=== PATIENT | female | born 1960 | race Caucasian/White ===

== ENCOUNTER 2016-08-08 08:10 | Outpatient (CLI) | payer OTHER, MEDICAID | END 2016-08-08 08:11 | disposition home or self-care (01) | DX: E78.5 Hyperlipidemia, unspecified (principal); R53.83 Other fatigue; Z12.11 Encounter for screening for malignant neoplasm of colon ==

== ENCOUNTER 2016-08-09 08:00 | Outpatient (CLI) | payer OTHER, MEDICAID | END 2016-08-09 08:01 | disposition home or self-care (01) | DX: R53.83 Other fatigue (principal); Z12.11 Encounter for screening for malignant neoplasm of colon; E78.5 Hyperlipidemia, unspecified ==

== ENCOUNTER 2016-09-21 13:28 | Outpatient (CLI) | payer OTHER, MEDICAID ==
[2016-09-21 18:38] LABS: THYROID STIMULATING HORMONE 1.63 uIU/mL (0.34-5.60)
== END 2016-09-21 13:29 | disposition home or self-care (01) ==
LOC: LAB.F 13:28
PROVIDERS: ATTEND Nurse Practitioner Family
DX: E03.9 Hypothyroidism, unspecified (principal)
CPT/HCPCS: 36415; 84439; 84443

== ENCOUNTER 2016-11-09 08:22 | Outpatient (CLI) | payer OTHER ==
[2016-11-09 10:35] LABS: EOSINOPHILS # (AUTO) 0.2 10^3/uL (0.0-0.7); EOSINOPHILS % (AUTO) 3.8 %; LYMPHOCYTES # (AUTO) 1.9 10^3/uL (1.5-3.5); MEAN PLATELET VOLUME 10.2 fL (7.9-10.8); MONOCYTES # (AUTO) 0.5 10^3/uL (0.0-1.0)
[2016-11-09 10:37] LABS: BASOPHILS % (AUTO) 0.4 %; HCT - HEMATOCRIT 36.3 % (37.0-47.0); HGB - HEMOGLOBIN 12.6 g/dL (12.0-16.0); LYMPHOCYTES % (AUTO) 30.4 %; MEAN CORPUSCULAR HEMOGLOBIN 31.3 pg (27.0-31.0); MEAN CORPUSCULAR HGB CONC 34.7 g/dL (32.0-36.0); MEAN CORPUSCULAR VOLUME 90.3 fL (81.0-99.0); MONOCYTES % (AUTO) 7.1 %; NEUTROPHILS # (AUTO) 3.7 10^3/uL (1.5-6.6); NEUTROPHILS % (AUTO) 58.3 %; RED BLOOD COUNT 4.02 10^6/uL (4.20-5.40); RED CELL DISTRIBUTION WIDTH 12.9 % (12.0-15.0); UNCORRECTED WHITE BLOOD COUNT 6.4 x10^3/uL; WHITE BLOOD COUNT 6.4 x10^3/uL (4.8-10.8)
[2016-11-09 10:56] LABS: ALBUMIN/GLOBULIN RATIO 1.7 (1.0-2.2); BILIRUBIN,TOTAL 0.2 mg/dL (0.2-1.0); CREATININE 0.6 mg/dL (0.4-1.0); TOTAL PROTEIN 6.8 g/dL (6.7-8.2)
[2016-11-09 10:59] LABS: CALCIUM 8.9 mg/dL (8.5-10.3); POTASSIUM 3.7 mmol/L (3.5-5.0)
[2016-11-09 11:04] LABS: FERRITIN 48.7 ng/mL (11.0-306.8)
[2016-11-09 11:16] LABS: THYROID STIMULATING HORMONE 3.39 uIU/mL (0.34-5.60)
== END 2016-11-09 08:23 | disposition home or self-care (01) ==
LOC: LAB.F 08:22
PROVIDERS: ATTEND Nurse Practitioner Family
DX: R53.83 Other fatigue (principal); N95.1 Menopausal and female climacteric states; E03.9 Hypothyroidism, unspecified; E55.9 Vitamin D deficiency, unspecified
CPT/HCPCS: 36415; 80053; 82306; 82728; 84436; 84439; 84443; 84481; 85025; 86376; 86800

== ENCOUNTER 2017-02-13 12:48 | Outpatient (CLI) | payer OTHER ==
--- NOTE | 2017-02-13 15:55 | XRAY Report ---
THREE VIEW LUMBAR SPINE: 02/13/2017 CLINICAL INDICATION: Back pain. FINDINGS: AP, lateral, and coned down views of the lumbar spine demonstrate degenerative disk and fa cet disease. Disk space narrowing is worst at L2-3. There is no evidence of acute fracture or subluxa tion. IMPRESSION: DEGENERATIVE CHANGES, WORST AT L2-3. JOB #: [id number] EXT JOB #:[id number]
--- NOTE | 2017-02-13 15:58 | XRAY Report ---
SACRUM AND COCCYX: 02/13/2017 CLINICAL INDICATION: Low back pain. FINDINGS: AP, oblique, and lateral views of the sacrum and coccyx demonstrate mild degenerative jacobs ges of the sacroiliac joints. There is no evidence of acute fracture. The sacral ala are preserved. IMPRESSION: NORMAL SACRUM AND COCCYX. JOB #: [id number] EXT JOB #:[id number]
--- NOTE | 2017-02-13 15:59 | XRAY Report ---
TWO VIEW THORACIC SPINE: 02/13/2017 CLINICAL INDICATION: Back pain. FINDINGS: Frontal and lateral views of the thoracic spine demonstrate mild degenerative disk disease . There is no evidence of compression fracture. No paraspinal hematoma is seen. IMPRESSION: MILD DEGENERATIVE DISK DISEASE. JOB #: [id number] EXT JOB #:[id number]
== END 2017-02-13 12:49 | disposition home or self-care (01) ==
LOC: DI 12:48
PROVIDERS: ATTEND Nurse Practitioner Family
DX: M51.34 Other intervertebral disc degeneration, thoracic region (principal); M51.36 Other intervertebral disc degeneration, lumbar region; M47.896 Other spondylosis, lumbar region
CPT/HCPCS: 72070; 72100; 72220

== ENCOUNTER 2017-11-29 08:10 | Outpatient (CLI) | payer OTHER ==
[2017-11-29 10:43] LABS: BASOPHILS % (AUTO) 0.6 %; EOSINOPHILS # (AUTO) 0.2 10^3/uL (0.0-0.7); EOSINOPHILS % (AUTO) 3.6 %; HGB - HEMOGLOBIN 13.2 g/dL (12.0-16.0); LYMPHOCYTES # (AUTO) 2.3 10^3/uL (1.5-3.5); LYMPHOCYTES % (AUTO) 38.3 %; MEAN CORPUSCULAR HEMOGLOBIN 30.4 pg (27.0-31.0); MEAN CORPUSCULAR HGB CONC 33.9 g/dL (32.0-36.0); MEAN CORPUSCULAR VOLUME 89.7 fL (81.0-99.0); MEAN PLATELET VOLUME 9.8 fL (7.9-10.8); MONOCYTES # (AUTO) 0.5 10^3/uL (0.0-1.0); MONOCYTES % (AUTO) 8.6 %; NEUTROPHILS # (AUTO) 2.9 10^3/uL (1.5-6.6); NEUTROPHILS % (AUTO) 48.9 %; PLT - PLATELET COUNT 214 10^3/uL (130-450); RED BLOOD COUNT 4.35 10^6/uL (4.20-5.40); RED CELL DISTRIBUTION WIDTH 12.9 % (12.0-15.0)
[2017-11-29 10:54] LABS: ALBUMIN 4.2 g/dL (3.2-5.5); ALBUMIN/GLOBULIN RATIO 1.6 (1.0-2.2); ALKALINE PHOSPHATASE 52 IU/L (42-121); ALT ALANINE AMINOTRANSFERASE 24 IU/L (10-60); AST ASPARTATE AMINOTRANSFERASE 27 IU/L (10-42); BILIRUBIN,TOTAL 0.6 mg/dL (0.2-1.0); BUN - BLOOD UREA NITROGEN 15 mg/dL (6-20); CALCIUM 9.3 mg/dL (8.5-10.3); CARBON DIOXIDE - CO2 27 mmol/L (21-32); CHLORIDE 104 mmol/L (101-111); CHOL/HDL RATIO 2.7 (<4.4); CHOLESTEROL 240 mg/dL; CREATININE 0.9 mg/dL (0.4-1.0); GFR - MDRD 64 (>89); GLUCOSE 101 mg/dL (70-100); HDL CHOLESTEROL 90 mg/dL; LDL CHOLESTEROL,CALCULATED 120 mg/dL; LDL/HDL RATIO 1.3 (<4.4); SODIUM 138 mmol/L (135-145); TOTAL PROTEIN 6.8 g/dL (6.7-8.2); VLDL CHOLESTEROL 30 mg/dL
[2017-11-29 11:03] LABS: T4 (THYROXINE) 6.12 ug/dL (6.09-12.23)
[2017-11-29 11:06] LABS: THYROID STIMULATING HORMONE 3.05 uIU/mL (0.34-5.60)
[2017-11-29 11:08] LABS: FREE T4 (FREE THYROXINE) 0.86 ng/dL (0.58-1.64)
[2017-11-29 11:12] LABS: FERRITIN 52.1 ng/mL (11.0-306.8)
[2017-12-02 12:26] LABS: THYROID PEROXIDASE ANTIBODIES 90 IU/mL (<9)
== END 2017-11-29 08:11 | disposition home or self-care (01) ==
LOC: LAB.F 08:10
PROVIDERS: ATTEND Nurse Practitioner Family
DX: Z00.00 Encounter for general adult medical examination without abnormal findings (principal); E55.9 Vitamin D deficiency, unspecified; E78.5 Hyperlipidemia, unspecified; E03.9 Hypothyroidism, unspecified
CPT/HCPCS: 36415; 80053; 80061; 82306; 82728; 83721; 84436; 84439; 84443; 84481; 85025; 86376; 86800

== ENCOUNTER 2017-12-22 17:47 | Emergency (ER) | payer OTHER ==
[2017-12-22] MEDS ORDERED: KETOROLAC 60 MG/2 ML VIAL IVP STA (18:10)
--- NOTE | 2017-12-22 18:12 | ED Physician Documentation ---
PD HPI ABD PAIN - Stated complaint Stated Complaint: ABD PX/FEVER - Chief complaint Chief Complaint: Abd Pain - History obtained from History obtained from: Patient, Family - History of Present Illness Pain level max: 5 Pain level now: 4 Quality: Aching, Pain Location: RLQ, Suprapubic, LLQ Radiation: Lower back Improved by: Laying still Worsened by: Eating, Moving, Palpation Associated symptoms: Fever, Diarrhea. No: Nausea, Vomiting, Constipation, Hematochezia, Dysuria, Hematuria, Dizzy Similar symptoms before: Has not had sx before Recently seen: Not recently seen - Additional information Additional information: Patient is a 57 year old female who presents to the emergency department with c/o moderate abdominal pain. States the pain is located in her lower abdomen and states it feels like "a burning wound with salt being poured on it". States she is afraid to take any pain medications orally in fear that it might upset her abdomen and make her pain worse. States that eating makes her symptoms worse. Is scheduled for a colonoscopy in a few weeks. Review of Systems Ten Systems: 10 systems reviewed and negative Constitutional: denies: Fever, Chills Nose: denies: Rhinorrhea / runny nose, Congestion Throat: denies: Sore throat Cardiac: denies: Chest pain / pressure Respiratory: denies: Cough GI: denies: Nausea, Vomiting, Diarrhea Skin: denies: Rash Musculoskeletal: denies: Neck pain, Back pain Neurologic: denies: Headache PD PAST MEDICAL HISTORY - Past Medical History Cardiovascular: None Respiratory: None Endocrine/Autoimmune: None GI: None : None HEENT: None Psych: None Musculoskeletal: Osteoarthritis Derm: None - Past Surgical History Past Surgical History: Yes General: 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: 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 and currettage - Present Medications Home Medications: Ambulatory Orders Medication Instructions Recorded Confirmed Amox/Clav 875/125 [Augmentin] 1 each PO Q12H #20 tablet 12/22/17 Levothyroxine [Synthroid] 12/22/17 - Allergies Allergies/Adverse Reactions: Allergies Allergy/AdvReac Type Severity Reaction Status Date / Time No Known Drug Allergies Allergy Verified 12/22/17 17:55 - Social History Does the pt smoke?: Yes Smoking Status: Current every day smoker Does the pt drink ETOH?: Yes Does the pt have substance abuse?: Yes - Immunizations Immunizations are current?: Yes - POLST Patient has POLST: No POLST Status: Full Code PD ED PE NORMAL - Vitals Vital signs reviewed: Yes - General General: Alert and oriented X 3, No acute distress - HEENT HEENT: Moist mucous membranes - Neck Neck: Supple, no meningeal sign - Cardiac Cardiac: RRR, Strong equal pulses - Respiratory Respiratory: No respiratory distress, Clear bilaterally - Abdomen Abdomen: Soft, Non distended, Other (TTP suprapubic and LLQ, no peritoneal signs.) - Derm Derm: Warm and dry - Extremities Extremities: No edema - Neuro Neuro: Alert and oriented X 3 Results - Vitals Vitals: Vital Signs - 24 hr 12/22/17 12/22/17 17:51 20:14 Temperature 37.3 C 37.3 C Heart Rate 97 83 Respiratory 16 14 Rate Blood Pressure 115/87 H 106/74 O2 Saturation 97 96 Oxygen O2 Source Room air - Labs Labs: Laboratory Tests 12/22/17 12/22/17 12/22/17 18:15 18:15 18:15 WBC 10.9 H RBC 4.26 Hgb 13.1 Hct 38.1 MCV 89.4 MCH 30.9 MCHC 34.5 RDW 12.9 Plt Count 201 MPV 9.3 Neut # (Auto) 7.7 H Lymph # (Auto) 1.7 [place] # (Auto) 1.3 H Eos # (Auto) 0.1 Baso # (Auto) 0.1 Absolute Nucleated RBC 0.00 Nucleated RBC % 0.0 Sodium 135 Potassium 3.4 L Chloride 102 Carbon Dioxide 25 Anion Gap 8.0 BUN 15 Creatinine 0.8 Estimated GFR (MDRD) 74 L Glucose 112 H Calcium 9.2 Total Bilirubin 0.8 AST 21 ALT 20 Alkaline Phosphatase 51 Total Protein 7.0 Albumin 4.2 Globulin 2.8 Albumin/Globulin Ratio 1.5 Lipase 31 Urine Color YELLOW Urine Clarity HAZY Urine pH 6.0 Ur Specific [place] 1.020 Urine Protein NEGATIVE Urine Glucose (UA) NEGATIVE Urine Ketones 15 H Urine Occult Blood NEGATIVE Urine Nitrite POSITIVE H Urine Bilirubin NEGATIVE Urine Urobilinogen 0.2 (NORMAL) Ur Leukocyte Esterase NEGATIVE Urine RBC 0-5 Urine WBC 11-25 H Urine WBC Clumps PRESENT Ur Squamous Epith Cells NONE SEEN Urine Bacteria Many H Ur Microscopic Review INDICATED Urine Culture Comments INDICATED - Rads (name of study) CT abd/pelvis Radiology: Prelim report reviewed, EMP read contemporaneously, See rad report (Uncomplicated mid sigmoid diverticulitis, low left pelvis. Degenerative disk disease, L2-L3 and L5-S1. Nonobstructing left intrarenal stone noted. ) PD MEDICAL DECISION MAKING - ED course Complexity details: reviewed results, re-evaluated patient, considered differential, d/w patient, d/w family ED course: Patient is a 57-year-old female who presents with abdominal pain. Found to have sigmoid diverticulitis. Uncomplicated. No abscess or perforation. Will place on antibiotics and follow-up closely with her doctor. She is well-appearing, nontoxic. Afebrile. Patient counseled regarding signs and symptoms for which I believe and urgent re-evaluation would be necessary. Patient with good understanding of and agreement to plan and is comfortable going home at this time This document was made in part using voice recognition software. While efforts are made to proofread this document, sound alike and grammatical errors may occur. - Sepsis Event Vital Signs: Vital Signs - 24 hr 12/22/17 12/22/17 17:51 20:14 Temperature 37.3 C 37.3 C Heart Rate 97 83 Respiratory 16 14 Rate Blood Pressure 115/87 H 106/74 O2 Saturation 97 96 Oxygen O2 Source Room air Departure - Departure Disposition: 01 Home, Self Care Clinical Impression: Diverticulitis Condition: Good Instructions: ED Diverticulitis Follow-Up: Patric Trinh ARNP [Primary Care Provider] - Within 1 week Prescriptions: Amox/Clav 875/125 [Augmentin] 1 each PO Q12H #20 tablet Comments: Take all antibiotics until gone. Return if you worsen. Discharge Date/Time: 12/22/17 20:20
[2017-12-22] MEDS ORDERED: IOPAMIDOL-300 100 ML VIAL ONE (18:17)
[2017-12-22 18:31] LABS: BASOPHILS # (AUTO) 0.1 10^3/uL (0.0-0.1); BASOPHILS % (AUTO) 0.7 %; EOSINOPHILS # (AUTO) 0.1 10^3/uL (0.0-0.7); EOSINOPHILS % (AUTO) 0.9 %; HGB - HEMOGLOBIN 13.1 g/dL (12.0-16.0); LYMPHOCYTES # (AUTO) 1.7 10^3/uL (1.5-3.5); LYMPHOCYTES % (AUTO) 15.8 %; MEAN CORPUSCULAR HEMOGLOBIN 30.9 pg (27.0-31.0); MEAN CORPUSCULAR HGB CONC 34.5 g/dL (32.0-36.0); MEAN CORPUSCULAR VOLUME 89.4 fL (81.0-99.0); MEAN PLATELET VOLUME 9.3 fL (7.9-10.8); MONOCYTES # (AUTO) 1.3 10^3/uL (0.0-1.0); MONOCYTES % (AUTO) 12.4 %; NEUTROPHILS # (AUTO) 7.7 10^3/uL (1.5-6.6); NEUTROPHILS % (AUTO) 70.2 %; PLT - PLATELET COUNT 201 10^3/uL (130-450); RED BLOOD COUNT 4.26 10^6/uL (4.20-5.40); RED CELL DISTRIBUTION WIDTH 12.9 % (12.0-15.0); WHITE BLOOD COUNT 10.9 x10^3/uL (4.8-10.8)
[2017-12-22] MEDS ORDERED: SODIUM CHLORIDE 0.9% 1,000 ML IV ONE (18:32)
[2017-12-22 18:37] LABS: BILIRUBIN,URINE NEGATIVE (NEGATIVE); GLUCOSE, URINE (UA) NEGATIVE (NEGATIVE); KETONES,URINE (UA) 15 mg/dL (NEGATIVE); LEUKOCYTE ESTERASE, URINE NEGATIVE (NEGATIVE); NITRITE,URINE POSITIVE (NEGATIVE); OCCULT BLOOD,URINE NEGATIVE (NEGATIVE); PROTEIN,URINE NEGATIVE (NEGATIVE); UROBILINOGEN,URINE 0.2 (NORMAL) E.U./dL (NORMAL)
[2017-12-22 18:43] LABS: ALBUMIN 4.2 g/dL (3.2-5.5); ALBUMIN/GLOBULIN RATIO 1.5 (1.0-2.2); BILIRUBIN,TOTAL 0.8 mg/dL (0.2-1.0); CALCIUM 9.2 mg/dL (8.5-10.3); CREATININE 0.8 mg/dL (0.4-1.0)
[2017-12-22 18:44] LABS: CLARITY,URINE HAZY (CLEAR); WBC CLUMPS,URINE PRESENT
[2017-12-22 18:45] LABS: BACTERIA,URINE Many /HPF (None Seen); RBC,URINE 0-5 /HPF (0-5); SQUAMOUS EPITHELIAL CELL,UR NONE SEEN (<= Few)
[2017-12-22] MEDS ORDERED: IOPAMIDOL-300 100 ML VIAL IVP ONE (18:57)
--- NOTE | 2017-12-22 19:28 | CT Report ---
Reason: LLQ abd pain Procedure Date: 12/22/2017 Accession Number: [id number] / [id number] Procedure: CT - Abdomen/Pelvis W/ CPT Code: FULL RESULT: EXAM: CT ABDOMEN AND PELVIS EXAM DATE: 12/22/2017 06:52 PM. CLINICAL HISTORY: Left lower quadrant pain. COMPARISONS: None. TECHNIQUE: Routine helical CT imaging was performed through the abdomen and pelvis. IV contrast: 100 cc of Isovue-300. Enteric contrast: No. Reconstructions: Coronal and sagittal. In accordance with CT protocol optimization, one or more of the following dose reduction techniques were utilized for this exam: automated exposure control, adjustment of mA and/or KV based on patient size, or use of iterative reconstructive technique. FINDINGS: Lung Bases: Unremarkable. Liver: Normal. No masses. Gallbladder/Bile Ducts: Unremarkable. Spleen: Normal. Pancreas: Normal. Adrenal Glands: Normal. Kidneys: Subcentimeter cortical low densities, likely cysts. Nonobstructing 2 mm intrarenal calcification, lower left kidney. Otherwise unremarkable. Peritoneal Cavity/Bowel: Mild diverticulosis. Wall thickening and adjacent fat stranding of the mid sigmoid colon in the low left pelvis. No abscess. No free fluid, free air or adenopathy. No masses. Appendectomy clips noted. Pelvic Organs: Normal. The bladder and visualized pelvic organs are within normal limits. Vasculature: No aneurysms or other significant abnormality. Bones: Degenerative disk disease at L2-L3 and L5-S1. Other: None. IMPRESSION: 1. Uncomplicated mid sigmoid diverticulitis, low left pelvis. 2. Degenerative disk disease, L2-L3 and L5-S1. 3. Nonobstructing left intrarenal stone noted. RADIA
[2017-12-22] MEDS ORDERED: AMOX/CLAV 875 MG/125 MG TABLET PO STA (19:47)
[2017-12-22 20:15] VITALS: BP 106/74
== END 2017-12-22 20:20 | disposition home or self-care (01) ==
LOC: ED 17:47
DX: K57.92 Diverticulitis of intestine, part unspecified, without perforation or abscess without bleeding (principal); F17.200 Nicotine dependence, unspecified, uncomplicated
CPT/HCPCS: 36415; 74177; 80053; 81001; 83690; 85025; 87086; 87181; 96361; 96374; 99283; 99284; A9270; Q9967; 81003

== ENCOUNTER 2017-12-27 08:51 | Emergency (ER) | payer OTHER ==
--- NOTE | 2017-12-27 09:52 | ED Physician Documentation ---
History of Present Illness - Stated complaint Stated Complaint: ALLERGIC REACTION - Chief complaint Chief Complaint: Allergic Rx - Additonal information Additional information: pt seen last weekedn and dx diverticulitis rx augmentin while taking augmentin she feels her throat is swollen and toght no hives no lip or tongue swelling abd feeling better Review of Systems Constitutional: denies: Fever Throat: reports: Sore throat (tight) Cardiac: denies: Chest pain / pressure Respiratory: denies: Dyspnea GI: reports: Abdominal Pain (better) Skin: denies: Rash PD PAST MEDICAL HISTORY - Past Medical History Cardiovascular: None Respiratory: None Endocrine/Autoimmune: None GI: None : None HEENT: None Psych: None Musculoskeletal: Osteoarthritis Derm: None - Past Surgical History Past Surgical History: Yes 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: Yes Smoking Status: Current every day smoker Does the pt drink ETOH?: Yes Does the pt have substance abuse?: Yes - Immunizations Immunizations are current?: Yes - POLST Patient has POLST: No POLST Status: Full Code PD ED PE NORMAL - Vitals Vital signs reviewed: Yes - HEENT HEENT: Other (no oral swelling) - Neck Neck: Supple, no meningeal sign - Cardiac Cardiac: RRR - Respiratory Respiratory: No respiratory distress - Abdomen Abdomen: Soft, Non tender - Derm Derm: Normal color - Neuro Neuro: Alert and oriented X 3 Eye Opening: Spontaneous Motor: Obeys Commands Verbal: Oriented GCS Score: 15 Results - Vitals Vitals: Vital Signs - 24 hr 12/27/17 09:06 Temperature 36.5 C Heart Rate 77 Respiratory 16 Rate Blood Pressure 101/78 O2 Saturation 98 Oxygen O2 Source Room air - EKG (time done) 0916 Rate: Rate (enter#) (65) Rhythm: NSR [place]: Normal Intervals: Normal [place] Ischemia: Non specific changes - Labs Labs: Laboratory Tests 12/27/17 12/27/17 12/27/17 10:08 10:08 10:08 WBC 5.3 RBC 4.28 Hgb 13.2 Hct 38.0 MCV 88.7 MCH 30.9 MCHC 34.8 RDW 12.6 Plt Count 270 MPV 8.9 Neut # (Auto) 2.8 Lymph # (Auto) 1.8 [place] # (Auto) 0.5 Eos # (Auto) 0.2 Baso # (Auto) 0.0 Absolute Nucleated RBC 0.00 Nucleated RBC % 0.0 Sodium 138 Potassium 4.1 Chloride 101 Carbon Dioxide 28 Anion Gap 9.0 BUN 9 Creatinine 0.7 Estimated GFR (MDRD) 86 L Glucose 111 H Calcium 9.7 Total Bilirubin 0.6 AST 26 ALT 22 Alkaline Phosphatase 69 Troponin I < 0.04 Total Protein 7.8 Albumin 4.5 Globulin 3.3 Albumin/Globulin Ratio 1.4 Lipase 34 PD MEDICAL DECISION MAKING - ED course ED course: pt also states she has been having panic attacks and would like 1-2 xanax until can see pMD - Sepsis Event Vital Signs: Vital Signs - 24 hr 12/27/17 09:06 Temperature 36.5 C Heart Rate 77 Respiratory 16 Rate Blood Pressure 101/78 O2 Saturation 98 Oxygen O2 Source Room air Departure - Departure Disposition: 01 Home, Self Care Clinical Impression: Adverse reaction to drug Qualifiers: Encounter type: initial encounter Qualified Code(s): T50.905A - Adverse effect of unspecified drugs, medicaments and biological substances, initial encounter Condition: Good Instructions: ED Drug React Allergic Prescriptions: Alprazolam [Xanax] 0.25 mg PO ONCE PRN #2 tablet PRN Reason: panic attack Metronidazole [Flagyl] 500 mg PO BID #14 tablet Sulfamethox/Trimeth 800/160 [Bactrim Ds 800/160] 1 each PO BID #14 tablet Comments: Your EKG and labs were fine Stop the augmentin. Change to bactrim and flagyl instead. Do not drink alcohol while taking flagyl Continue your probiotic Take an antihistamine such as claritin once daily until your throat feels better I do not think steroids for the swelling are a good idea with your acute infection. I also prescibed xanax to be used as needed for panic attacks
[2017-12-27 10:14] LABS: BASOPHILS % (AUTO) 0.9 %; EOSINOPHILS # (AUTO) 0.2 10^3/uL (0.0-0.7); EOSINOPHILS % (AUTO) 3.9 %; HGB - HEMOGLOBIN 13.2 g/dL (12.0-16.0); LYMPHOCYTES # (AUTO) 1.8 10^3/uL (1.5-3.5); LYMPHOCYTES % (AUTO) 33.7 %; MEAN CORPUSCULAR HEMOGLOBIN 30.9 pg (27.0-31.0); MEAN CORPUSCULAR HGB CONC 34.8 g/dL (32.0-36.0); MEAN CORPUSCULAR VOLUME 88.7 fL (81.0-99.0); MEAN PLATELET VOLUME 8.9 fL (7.9-10.8); MONOCYTES # (AUTO) 0.5 10^3/uL (0.0-1.0); MONOCYTES % (AUTO) 8.7 %; NEUTROPHILS # (AUTO) 2.8 10^3/uL (1.5-6.6); NEUTROPHILS % (AUTO) 52.8 %; PLT - PLATELET COUNT 270 10^3/uL (130-450); RED BLOOD COUNT 4.28 10^6/uL (4.20-5.40); RED CELL DISTRIBUTION WIDTH 12.6 % (12.0-15.0); WHITE BLOOD COUNT 5.3 x10^3/uL (4.8-10.8)
--- NOTE | 2017-12-27 10:17 | XRAY Report ---
Reason: chest pain Procedure Date: 12/27/2017 Accession Number: [id number] / [id number] Procedure: XR - Chest 2 View X-Ray CPT Code: 02123 FULL RESULT: EXAM: CHEST RADIOGRAPHY EXAM DATE: 12/27/2017 09:31 AM. CLINICAL HISTORY: Chest pain. COMPARISON: 08/01/2013. TECHNIQUE: 2 views. FINDINGS: Lungs/Pleura: Mildly hyperexpanded similar to previous study. No localized infiltrate, consolidation, effusion, or pneumothorax. Mediastinum: Heart and mediastinal contours are unremarkable. Upper lobe vessels not distended. Other: Calcific periarthritis of the shoulders. IMPRESSION: No acute disease. RADIA
[2017-12-27 10:30] LABS: ALBUMIN 4.5 g/dL (3.2-5.5); ALBUMIN/GLOBULIN RATIO 1.4 (1.0-2.2); BILIRUBIN,TOTAL 0.6 mg/dL (0.2-1.0); CALCIUM 9.7 mg/dL (8.5-10.3); CREATININE 0.7 mg/dL (0.4-1.0); TOTAL PROTEIN 7.8 g/dL (6.7-8.2)
[2017-12-27] MEDS ORDERED: LORATADINE 10 MG TABLET PO STA (11:22)
[2017-12-27] MEDS ORDERED: FAMOTIDINE 20 MG TABLET PO STA (11:23)
[2017-12-27] MEDS ORDERED: DICYCLOMINE 10 MG CAPSULE PO STA (12:43)
[2017-12-27 12:44] VITALS: BP 128/87
== END 2017-12-27 12:50 | disposition home or self-care (01) ==
LOC: ED 08:51
DX: R22.9 Localized swelling, mass and lump, unspecified (principal); T36.0X5A Adverse effect of penicillins, initial encounter; R94.31 Abnormal electrocardiogram [ECG] [EKG]; F17.200 Nicotine dependence, unspecified, uncomplicated
CPT/HCPCS: 36415; 71046; 80053; 83690; 84484; 85025; 93005; 99283; A9270

== ENCOUNTER 2018-07-30 14:50 | Outpatient (CLI) | payer OTHER ==
--- NOTE | 2018-07-31 08:57 | Mammography Report ---
Reason: SCREENING MAMMO Procedure Date: 07/30/2018 Accession Number: [id number] / [id number] Procedure: VÍCTOR - Screening Mammo w/Leno CPT Code: FULL RESULT: EXAM: Screening Mammo w/Leno DATE: 07/30/2018 3:26 PM CLINICAL HISTORY: Family history of breast cancer in the mother at the age of 75 and sister at the age of 42. TECHNIQUE: (B) - Bilateral CC, laterally exaggerated CC, MLO views were obtained. COMPARISON: 03/22/2016 through 10/08/2012. PARENCHYMAL PATTERN: (D) - The breast(s) demonstrate(s) heterogeneously dense fibroglandular parenchyma. FINDINGS: Including on the right MLO field of view only, 7.4 cm from the nipple, is an asymmetry on right breast 3-D image 16 with suggestion of calcifications which requires additional spot views in multiple projections and possibly ultrasound examination. There are no suspicious masses, calcifications, or areas of distortion in the left breast. IMPRESSION: Incomplete examination. BI-RADS category 0. RECOMMENDATION: (ADDMU) - Additional views using both Mammography and Ultrasound recommended. Right posterior upper outer breast. BI-RADS CATEGORY: (0) - Incomplete Examination - need additional evaluation. STANDARD QUALIFYING STATEMENTS: 1. This examination was not reviewed with the aid of Computer-Aided Detection (CAD). 2. A negative or benign imaging report should not preclude biopsy if clinically suspicious findings are present. 3. Dense breasts may obscure an underlying neoplasm. 4. This examination was reviewed with the aid of 3D breast imaging (tomosynthesis).
== END 2018-07-30 14:51 | disposition home or self-care (01) ==
LOC: DI 14:50
PROVIDERS: ATTEND Nurse Practitioner Family
DX: Z12.31 Encounter for screening mammogram for malignant neoplasm of breast (principal); R92.8 Other abnormal and inconclusive findings on diagnostic imaging of breast; Z80.3 Family history of malignant neoplasm of breast
CPT/HCPCS: 77063; 77067

== ENCOUNTER 2018-08-13 12:31 | Outpatient (CLI) | payer OTHER ==
--- NOTE | 2018-08-13 16:09 | Mammography Report ---
Reason: ABNORMAL MAMMOGRAM Procedure Date: 08/13/2018 Accession Number: [id number] / [id number] Procedure: VÍCTOR - Diag Special Views Dig RT CPT Code: FULL RESULT: EXAM: Diag Special Views Dig RT DATE: 08/13/2018 1:27 PM CLINICAL HISTORY: Diagnostic examination. The patient is recalled from screening for a right breast asymmetry with calcifications. TECHNIQUE: (R) - Right right ML and spot magnified MLO views are obtained. COMPARISON: 07/30/2018 through 10/08/2012. PARENCHYMAL PATTERN: (D) - The breast(s) demonstrate(s) heterogeneously dense fibroglandular parenchyma. FINDINGS: Spot magnification views resolved the focal asymmetry and demonstrate that there is no definite associated mass with the grouping of fine calcifications, probably benign finding. There are no suspicious masses, or areas of distortion. IMPRESSION: Probably Benign. BI-RADS category 3. RECOMMENDATION: (6MOS) - Recommend 6 month follow-up exam. 6 month follow-up views of the right breast. In consultation with the patient, the patient relates a concerning family history of breast cancer. If clinically indicated, consider screening breast MRI with and without genetic testing and counseling. BI-RADS CATEGORY: (3) - Probably Benign. STANDARD QUALIFYING STATEMENTS: 1. This examination was not reviewed with the aid of Computer-Aided Detection (CAD). 2. A negative or benign imaging report should not preclude biopsy if clinically suspicious findings are present. 3. Dense breasts may obscure an underlying neoplasm. 4. This examination was reviewed with the aid of 3D breast imaging (tomosynthesis).
== END 2018-08-13 12:32 | disposition home or self-care (01) ==
LOC: DI 12:31
PROVIDERS: ATTEND Nurse Practitioner Family
DX: R92.2 Inconclusive mammogram (principal)

== ENCOUNTER 2018-11-11 07:54 | Outpatient (CLI) | payer OTHER ==
[2018-11-11 10:30] LABS: T4 (THYROXINE) 6.03 ug/dL (6.09-12.23)
[2018-11-11 10:35] LABS: THYROID STIMULATING HORMONE 4.31 uIU/mL (0.34-5.60)
[2018-11-11 10:37] LABS: FREE T4 (FREE THYROXINE) 0.86 ng/dL (0.58-1.64)
== END 2018-11-11 07:55 | disposition home or self-care (01) ==
LOC: LAB.S 07:54
PROVIDERS: ATTEND Nurse Practitioner Family
DX: E03.2 Hypothyroidism due to medicaments and other exogenous substances (principal)
CPT/HCPCS: 36415; 84432; 84436; 84439; 84443; 84481; 86800

== ENCOUNTER 2019-05-06 13:54 | Outpatient (CLI) | payer OTHER ==
[2019-05-06] MEDS ORDERED: GADOBUTROL 7.5 MMOL/7.5 ML VIAL ONE (15:04)
[2019-05-06] MEDS ORDERED: GADOBUTROL 7.5 MMOL/7.5 ML VIAL IVP ONE (15:37)
--- NOTE | 2019-05-07 09:56 | MRI Report ---
Reason: CALCIFICATIONS, DENSITY, FX HX BREAST CA Procedure Date: 05/06/2019 Accession Number: [id number] / [id number] Procedure: MRI - Breast W/WO Cont CPT Code: 42070 Final Report FULL RESULT: EXAM: Breast W/WO Cont DATE: 05/06/2019 4:07 PM CLINICAL HISTORY: Family history of breast cancer in the mother at the age of 75 and a sister at the age of 42. Grouping of calcifications in the right breast which are morphologically probably benign on mammography. COMPARISON: 08/13/2018 through 09/30/2014. TECHNIQUE: 1.5T field strength Dedicated breast coil: Axial - precontrast STIR Axial - postcontrast sequential 1 minute three-dimensional FLASH (x 5) Axial - high-resolution volumetric water stimulation acquisition (VIEWS) Axial diffusion-weighted imaging. Axial noncontrast nonfat-saturated T1. CONTRAST USED: 6 mL Gadavist (gadolinium). POSTPROCESSING: Subtraction dynamic/curve analysis and multiplanar reformations with CAD stream FINDINGS: Chest: Normal visualized upper abdominal structures and intrathoracic structures. There is mild symmetric right and left-sided background parenchymal enhancement. Both breasts demonstrate heterogeneous fibroglandular tissue. Right breast: No masses are identified and there is no suspicious nonmass enhancement. No abnormal enhancement kinetics are detected. Left breast: No masses are identified and there is no suspicious nonmass enhancement. No abnormal enhancement kinetics are detected. IMPRESSION: BI-RADS 1. Normal exam. Recommendation: Based on MRI, continuation of annual high risk breast cancer screening. However, recommend follow-up mammography for right breast calcifications from diagnostic examination performed 08/13/2018, six-month follow-up imaging from original examination date. COMMENT: The literature indicates that a negative dynamic breast MRI has a high sensitivity and specificity for the detection of invasive carcinoma (to a threshold of 5 mm). MRI is not reliably sensitive for detecting ductal carcinoma in situ or large invasive neoplasms with only minimal enhancement (i.e. mucinous carcinoma). Normal-appearing lymph nodes on MRI may contain microscopic tumor. Appropriate clinical mammographic and sonographic followup should be performed if recommended. Negative MRI should not dissuade further evaluation of any suspicious mammographic calcifications and/or worrisome palpable masses.
== END 2019-05-06 13:55 | disposition home or self-care (01) ==
LOC: DI 13:54
PROVIDERS: ATTEND Nurse Practitioner Family
DX: R92.1 Mammographic calcification found on diagnostic imaging of breast (principal); R92.2 Inconclusive mammogram; Z80.3 Family history of malignant neoplasm of breast
CPT/HCPCS: 77049; A9585

== ENCOUNTER 2019-06-11 10:53 | Outpatient (CLI) | payer OTHER ==
[2019-06-11 11:19] LABS: BASOPHILS % (AUTO) 0.5 %; EOSINOPHILS # (AUTO) 0.2 10^3/uL (0.0-0.7); EOSINOPHILS % (AUTO) 2.5 %; HGB - HEMOGLOBIN 13.4 g/dL (12.0-16.0); LYMPHOCYTES # (AUTO) 1.6 10^3/uL (1.5-3.5); LYMPHOCYTES % (AUTO) 26.1 %; MEAN CORPUSCULAR HEMOGLOBIN 31.1 pg (27.0-31.0); MEAN CORPUSCULAR HGB CONC 33.8 g/dL (32.0-36.0); MEAN CORPUSCULAR VOLUME 91.9 fL (81.0-99.0); MEAN PLATELET VOLUME 10.9 fL (7.9-10.8); MONOCYTES # (AUTO) 0.6 10^3/uL (0.0-1.0); MONOCYTES % (AUTO) 8.7 %; NEUTROPHILS # (AUTO) 3.9 10^3/uL (1.5-6.6); PLT - PLATELET COUNT 247 10^3/uL (130-450); RED BLOOD COUNT 4.31 10^6/uL (4.20-5.40); RED CELL DISTRIBUTION WIDTH 12.6 % (12.0-15.0); WHITE BLOOD COUNT 6.3 x10^3/uL (4.8-10.8)
[2019-06-11 11:31] LABS: ALBUMIN 4.5 g/dL (3.2-5.5); ALBUMIN/GLOBULIN RATIO 1.6 (1.0-2.2); BILIRUBIN,TOTAL 0.5 mg/dL (0.2-1.0); CALCIUM 10.1 mg/dL (8.5-10.3); CREATININE 0.7 mg/dL (0.4-1.0); MAGNESIUM 2.2 mg/dL (1.7-2.8); TOTAL PROTEIN 7.4 g/dL (6.7-8.2)
== END 2019-06-11 10:54 | disposition home or self-care (01) ==
LOC: LAB 10:53
PROVIDERS: ATTEND Nurse Practitioner Family
DX: R07.89 Other chest pain (principal); R06.02 Shortness of breath
CPT/HCPCS: 36415; 80053; 81599; 82553; 83735; 85025

== ENCOUNTER 2019-06-11 11:38 | Outpatient (CLI) | payer OTHER ==
--- NOTE | 2019-06-11 15:38 | XRAY Report ---
Reason: SHORTNESS OF BREATH, CHEST PAIN Procedure Date: 06/11/2019 Accession Number: [id number] / [id number] Procedure: XR - Chest 2 View X-Ray CPT Code: 62342 Final Report FULL RESULT: EXAM: CHEST RADIOGRAPHY EXAM DATE: 06/11/2019 11:55 AM. CLINICAL HISTORY: SHORTNESS OF BREATH, CHEST PAIN. COMPARISON: CHEST 2 VIEW 12/27/2017 9:31 AM. TECHNIQUE: 2 views. FINDINGS: Lungs/Pleura: No focal opacities evident. No pleural effusion. No pneumothorax. Normal volumes. Mediastinum: Heart and mediastinal contours are unremarkable. Other: Chronic calcific supraspinatus tendinosis bilaterally. IMPRESSION: No evidence of active cardiopulmonary disease. RADIA
== END 2019-06-11 11:39 | disposition home or self-care (01) ==
LOC: DI 11:38
PROVIDERS: ATTEND Nurse Practitioner Family
DX: R07.89 Other chest pain (principal); R06.02 Shortness of breath
CPT/HCPCS: 36415; 71046; 80053; 81599; 82553; 83735; 85025; 93005

== ENCOUNTER 2019-06-11 11:43 | Outpatient (CLI) | payer OTHER | END 2019-06-11 11:44 | disposition home or self-care (01) | LOC: RT 11:43 | PROVIDERS: ATTEND Nurse Practitioner Family | DX: R07.89 Other chest pain (principal); R06.02 Shortness of breath | CPT/HCPCS: 93005 ==

== ENCOUNTER 2019-08-23 09:31 | Outpatient (CLI) | payer OTHER | END 2019-08-23 09:32 | disposition EMS.NT | LOC: EMS 09:31 | PROVIDERS: ATTEND Surgery | DX: R42 Dizziness and giddiness (principal) ==

== ENCOUNTER 2019-10-16 10:54 | Outpatient (CLI) | payer OTHER | END 2019-10-16 10:55 | disposition home or self-care (01) | LOC: LAB.S 10:54 | PROVIDERS: ATTEND Nurse Practitioner Family | DX: Z11.59 Encounter for screening for other viral diseases (principal) ==

== ENCOUNTER 2022-02-23 08:00 | Outpatient (CLI) | payer OTHER | END 2022-02-23 23:59 | disposition home or self-care (01) | LOC: LAB 08:00 | PROVIDERS: ATTEND Physician Assistant | DX: R07.0 Pain in throat (principal) | CPT/HCPCS: 87070 ==

== ENCOUNTER 2022-02-25 17:29 | Outpatient (CLI) | payer OTHER | END 2022-02-25 17:30 | disposition EMS.NT | LOC: EMS 17:29 | DX: F41.9 Anxiety disorder, unspecified (principal) ==

== ENCOUNTER 2023-04-05 15:49 | Emergency (ER) | payer OTHER ==
[2023-04-05 16:23] LABS: BILIRUBIN,URINE NEGATIVE (NEGATIVE); GLUCOSE, URINE (UA) NEGATIVE (NEGATIVE); KETONES,URINE (UA) 15 mg/dL (NEGATIVE); LEUKOCYTE ESTERASE, URINE TRACE (NEGATIVE); NITRITE,URINE NEGATIVE (NEGATIVE); OCCULT BLOOD,URINE TRACE-INTA (NEGATIVE); PH,URINE 6.5 PH (5.0-7.5); PROTEIN,URINE NEGATIVE (NEGATIVE); UROBILINOGEN,URINE 0.2 (NORMAL) E.U./dL (NORMAL)
[2023-04-05 16:26] LABS: CLARITY,URINE CLEAR (CLEAR)
[2023-04-05 16:28] LABS: BASOPHILS % (AUTO) 0.3 %; EOSINOPHILS # (AUTO) 0.1 10^3/uL (0.0-0.7); EOSINOPHILS % (AUTO) 0.6 %; HCT - HEMATOCRIT 39.5 % (37.0-47.0); HGB - HEMOGLOBIN 13.2 g/dL (12.0-16.0); LYMPHOCYTES # (AUTO) 1.1 10^3/uL (1.5-3.5); LYMPHOCYTES % (AUTO) 8.9 %; MEAN CORPUSCULAR HEMOGLOBIN 30.1 pg (27.0-31.0); MEAN CORPUSCULAR HGB CONC 33.4 g/dL (32.0-36.0); MEAN CORPUSCULAR VOLUME 90.2 fL (81.0-99.0); MEAN PLATELET VOLUME 10.9 fL (7.9-10.8); MONOCYTES # (AUTO) 1.6 10^3/uL (0.0-1.0); MONOCYTES % (AUTO) 12.3 %; NEUTROPHILS % (AUTO) 77.5 %; PLT - PLATELET COUNT 229 10^3/uL (130-450); RED BLOOD COUNT 4.38 10^6/uL (4.20-5.40); RED CELL DISTRIBUTION WIDTH 12.3 % (12.0-15.0); WHITE BLOOD COUNT 12.9 x10^3/uL (4.8-10.8)
[2023-04-05 16:31] LABS: SLIDE REVIEW? Indicated
[2023-04-05 16:43] LABS: BACTERIA,URINE Moderate /HPF (None Seen); RBC,URINE 0-5 /HPF (0-5); SQUAMOUS EPITHELIAL CELL,UR FEW Squamous (<= Few)
[2023-04-05 16:45] LABS: ALBUMIN 4.7 g/dL (3.2-5.5); ALBUMIN/GLOBULIN RATIO 1.7 (1.0-2.2); BILIRUBIN,TOTAL 0.7 mg/dL (0.2-1.0); CALCIUM 9.7 mg/dL (8.5-10.3); CREATININE 0.7 mg/dL (0.6-1.3); POTASSIUM 3.8 mmol/L (3.5-4.5); TOTAL PROTEIN 7.5 g/dL (6.4-8.9)
[2023-04-05 16:53] LABS: PLATELET ESTIMATE, MANUAL NORMAL (130-450,000) (NORMAL); PLATELET MORPHOLOGY NORMAL APPEARANCE (NORMAL); RBC MORPHOLOGY (MULTIPLE) NORMAL APPEARANCE (NORMAL); WBC MORPHOLOGY (MULTIPLE) 1+ HYPERSEG NEUT (NORMAL)
[2023-04-05 16:54] LABS: DIFFERENTIAL COMMENT MANUAL=AUTO DIFF
--- NOTE | 2023-04-05 19:17 | ED Physician Documentation ---
PD HPI ABD PAIN - Stated complaint Stated Complaint: ABD PX,BACK PX - Chief complaint Chief Complaint: Abd Pain - History obtained from History obtained from: Patient - Additional information Additional information: 62-year-old female with a past medical history of diverticulitis in 2018 presents with left lower abdominal pain that started Yesterday, radiated into the mid part of the abdomen and then around to her back as well. She states it felt somewhat similar to the diverticulitis and she was concerned that she may have had a recurrence. She had crampy type pain that came in waves. She had some pain shooting down both legs. No saddle anesthesia, no bowel or bladder changes. She denies nausea vomiting and denies any urinary symptoms. She states she typically tries to treat similar symptoms with broth and coconut oil as this has alleviated her symptoms in the past. She states that over the summer she believes she developed anaphylactic reaction to sulfa drugs, penicillins and ciprofloxacin. Though she has used these medications in the past she states this summer it was determined apparently that she had anaphylaxis to these medications and she would like to avoid antibiotics if at all possible.. Review of Systems Constitutional: reports: Reviewed and negative Throat: reports: Reviewed and negative Cardiac: reports: Reviewed and negative Respiratory: reports: Reviewed and negative GI: reports: Abdominal Pain. 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 - Present Medications Home Medications: Ambulatory Orders Medication Instructions Recorded Confirmed Levothyroxine [Synthroid] 75 mcg PO DAILY 12/22/17 04/05/23 HYDROcod/ACETAM 5/325 [[place] 5/325] 1 - 2 tablet PO Q6H PRN #14 tablet 04/05/23 Liothyronine [Cytomel] 5 mcg PO QDAC 04/05/23 04/05/23 ONDANSETRON ODT Prepack 2 [ZOFRAN 4 mg TL Q6H PRN #10 tablet 04/05/23 ODT Prepack 2] - Allergies Allergies/Adverse Reactions: Allergies Allergy/AdvReac Type Severity Reaction Status Date / Time No Known Drug Allergies Allergy Verified 12/22/17 17:55 - Social History Does the pt smoke?: No Smoking Status: Never smoker Does the pt drink ETOH?: Yes Does the pt have substance abuse?: Yes - Immunizations Immunizations are current?: Yes - POLST Patient has POLST: No POLST Status: Full Code PD ED PE NORMAL - Vitals Vital signs reviewed: Yes - General General: Alert and oriented X 3, No acute distress, Well developed/nourished - HEENT HEENT: Atraumatic, Moist mucous membranes - Cardiac Cardiac: RRR, No murmur, No gallop, No rub - Respiratory Respiratory: No respiratory distress, Clear bilaterally - Abdomen Abdomen: Normal bowel sounds, Soft, Non tender, Non distended - Back Back: No CVA TTP, No spinal TTP - Derm Derm: Normal color, Warm and dry - Neuro Neuro: Alert and oriented X 3 Eye Opening: Spontaneous Motor: Obeys Commands Verbal: Oriented GCS Score: 15 Results - Vitals Vitals: Vital Signs - 24 hr 04/05/23 04/05/23 04/05/23 15:58 19:25 21:00 Temperature 36.7 C 37.4 C Heart Rate 67 90 83 Respiratory 15 18 18 Rate Blood Pressure 117/71 127/83 H 124/76 O2 Saturation 100 97 93 Oxygen O2 Source Room air - Labs Labs: Laboratory Tests 04/05/23 04/05/23 04/05/23 16:16 16:23 16:23 WBC 12.9 H RBC 4.38 Hgb 13.2 Hct 39.5 MCV 90.2 MCH 30.1 MCHC 33.4 RDW 12.3 Plt Count 229 MPV 10.9 H Neut # (Auto) 10.0 H Lymph # (Auto) 1.1 L Schleicher # (Auto) 1.6 H Eos # (Auto) 0.1 Baso # (Auto) 0.0 Absolute Nucleated RBC 0.00 Band Neuts % (Manual) Not Reportable Abnorm Lymph % (Manual) Not Reportable Nucleated RBC % 0.0 Neutrophils # (Manual) Not Reportable Lymphocytes # (Manual) Not Reportable Monocytes # (Manual) Not Reportable Eosinophils # (Manual) Not Reportable Basophils # (Manual) Not Reportable Differential Comment MANUAL=AUTO DIFF Manual Slide Review Indicated WBC Morphology 1+ HYPERSEG NEUT Platelet Estimate NORMAL (130-450,000) Platelet Morphology NORMAL APPEARANCE RBC Morph Micro Appear NORMAL APPEARANCE Sodium 136 Potassium 3.8 Chloride 102 Carbon Dioxide 27 Anion Gap 7.0 BUN 14 Creatinine 0.7 Estimated GFR (MDRD) 85 L Glucose 109 H Calcium 9.7 Total Bilirubin 0.7 AST 18 ALT 20 Alkaline Phosphatase 72 Total Protein 7.5 Albumin 4.7 Globulin 2.8 Albumin/Globulin Ratio 1.7 Lipase 26 Urine Color YELLOW Urine Clarity CLEAR Urine pH 6.5 Ur Specific [place] 1.010 Urine Protein NEGATIVE Urine Glucose (UA) NEGATIVE Urine Ketones 15 H Urine Occult Blood TRACE-INTA Urine Nitrite NEGATIVE Urine Bilirubin NEGATIVE Urine Urobilinogen 0.2 (NORMAL) Ur Leukocyte Esterase TRACE H Urine RBC 0-5 Urine WBC 4-5 Ur Squamous Epith Cells FEW Squamous Urine Bacteria Moderate H Ur Microscopic Review INDICATED Urine Culture Comments INDICATED - Rads (name of study) No standard instances Relevant Findings:: Final report received PD Medical Decision Making - ED course Complexity details: reviewed old records, reviewed results, re-evaluated patient, considered differential, d/w patient, d/w family ED course: Very nice 62-year-old female presented with left lower quadrant abdominal pain that radiated into the mid abdomen and down the legs and into the back. It felt similar to prior bout of diverticulitis and patient was concerned that she had a recurrence. On arrival here, patient is nontoxic-appearing, afebrile stable vital signs, we did collect labs and obtain a CT scan due to the concern for possible diverticulitis with left lower quadrant pain, versus kidney stone versus UTI versus enteritis. Labs show mildly elevated white blood cell count, otherwise stable, CT does show a mild sigmoid diverticulitis. No other acute findings on CT scan. Urinalysis shows Possible UTI however patient does not have any dysuria urgency frequency and again would like to avoid antibiotics at all possible. I did discuss with patient that the diverticulitis can sometimes be treated supportively if it is a mild case and at this time the patient declines any antibiotic therapy. I have urged her to follow-up however if she develops a fever or worsening symptoms at which time antibiotics may be necessary. She was discharged home with as needed [place] though advised that if Tylenol is sufficient she can stick with, however this is also prescribe a course of Zofran to use as needed. Recommended clear liquids for the next couple days and then can advance slowly as tolerated. Patient plans to follow- up with her GI, she has an appointment in May but plans to call tomorrow to see if she can get in sooner. Departure - Departure Disposition: Home, Self Care Clinical Impression: Diverticulitis Condition: Good Instructions: ED Diverticulitis Prescriptions: HYDROcod/ACETAM 5/325 [[place] 5/325] 1 - 2 tablet PO Q6H PRN #14 tablet PRN Reason: Pain ONDANSETRON ODT Prepack 2 [ZOFRAN ODT Prepack 2] 4 mg TL Q6H PRN #10 tablet PRN Reason: Nausea / Vomiting Comments: Your CT scan did show diverticulitis. The diverticulitis is in the sigmoid colon and it is mild and your labs are stable. Typically we would recommend antibiotics though uncomplicated diverticulitis can be treated supportively and at this time you would like to avoid antibiotics. If you develop a fever though or worsening pain, diarrhea, vomiting or new concerns, please follow-up in we can consider antibiotics at any point in time. I did prescribe a short course of pain medication for you to use as needed, however if Tylenol is sufficient you can continue to use that. Please stick to a liquid diet for the next couple of days until symptoms improve and then you may advance as tolerated. I am prescribing a short course of narcotic pain medication for you. These are potentially dangerous and addictive medications that should be used carefully. These medications may constipate you. Take an lhbm-osw-bporlbf stool softener (docusate) twice daily with plenty of water while taking these medications. If you go 24 hours without a bowel movement, take [id number] miralax, per package instructions. Do not drink or drive while taking these medications. If you received narcotic or sedating medications while in the emergency department, do not drive for 24 hours. Store this medication in a safe, secure place and out of reach of children. It is a violation of federal law to give or sell this medication to another person or to use in a manner other than prescribed. The ED will not refill narcotic prescriptions, including prescriptions lost or stolen. To dispose of unwanted medications: 1. [facility]'s Office provides a drop box for medication in pill form only (no liquids) 8:00 am to 4:30 p.m. Saturday-Saturday in the lobby of the [facility], [address] Empty pills into ziplock bag before disposal. Call [phone] for information. 2.[employer] is a free service available to all [facility] residents. Go to [email or web address] Note that many narcotic pain relievers also contain Tylenol/acetaminophen. Please ensure that your total dose of acetaminophen from all sources does not exceed 3 g (3000 mg) per day. Forms: PCP List
[2023-04-05] MEDS ORDERED: iohexoL-300 100 ML VIAL IVP ONE (20:24)
--- NOTE | 2023-04-05 21:43 | CT Report ---
PROCEDURE: ABDOMEN/PELVIS W INDICATIONS: llq pain, hx/o diverticulitis CONTRAST: 100 ML OMNI 300 TECHNIQUE: After the administration of intravenous contrast, a CT scan of the abdomen and pelvis was performed. Images were recorded and evaluated at appropriate window settings. Reformats: coronal and sagittal. F or radiation dose reduction, the following was used: automated exposure control, adjustment of mA and /or kV according to patient size. COMPARISON: CT abdomen pelvis 12/22/2017. FINDINGS: Image quality: Excellent. Lung bases and heart: Unremarkable. Liver: No solid mass. Gallbladder and biliary tree: No radiopaque stones or wall thickening. No biliary dilation. Spleen: No splenomegaly. Pancreas: No pancreatic ductal dilation. Adrenals: No adrenal nodule. Kidneys and ureters: No hydronephrosis. Bilateral subcentimeter cortical hypodensities are too small to characterize, probable cysts. No renal cystic lesion which requires follow up. No solid mass. Bowel and peritoneum: No bowel distension. No pathologic free fluid. Colonic diverticulosis. Mild bow el wall thickening and adjacent fat stranding of the mid sigmoid in the low mid pelvis. No abscess. N o free fluid or free air. Status post appendectomy. Lymph nodes: No central or retroperitoneal adenopathy. Vessels: No infrarenal aortic aneurysm. PELVIS Reproductive organs: Unremarkable. Bladder: No abnormal wall thickening, accounting for underdistention. Pelvic lymph nodes: No pelvic adenopathy by size criteria. Bones: Degenerative changes without acute or suspicious osseous abnormality. Other: No significant ventral or inguinal hernia. IMPRESSION: Uncomplicated mid sigmoid diverticulitis. No free air to suggest perforation. No abscess. Reviewed by: Jessica Tejada MD on 04/05/2023 9:42 PM PST Approved by: Jessica Tejada MD on 04/05/2023 9:42 PM PST Station ID: [id number]
[2023-04-05] MEDS ORDERED: HYDROmorphone 1 MG/ML CARPUJECT IVP STA (21:49)
[2023-04-05 22:04] VITALS: BP 128/78
[2023-04-05 22:32] VITALS: O2SAT 97
== END 2023-04-05 22:25 | disposition home or self-care (01) ==
LOC: ED 15:49
DX: K57.32 Diverticulitis of large intestine without perforation or abscess without bleeding (principal); R82.998 Other abnormal findings in urine
CPT/HCPCS: 36415; 74177; 80053; 81001; 83690; 85025; 87077; 87086; 87181; 96374; 99284; J1170; Q9967; 81003

== ENCOUNTER 2023-11-19 09:40 | Emergency (ER) | payer OTHER ==
[2023-11-19 10:14] VITALS: O2SAT 100
--- NOTE | 2023-11-19 10:28 | XRAY Report ---
PROCEDURE: Knee 4+V RT INDICATIONS: Trauma TECHNIQUE: 4 views of the knee(s) were acquired. COMPARISON: None. FINDINGS: Bones: No fractures or dislocations. Degenerative change with small osteophytes and lateral patellof emoral joint space loss. No suspicious bony lesions. Soft tissues: No knee joint effusion. No suspicious soft tissue calcifications or masses. IMPRESSION: No acute bony abnormality. Degenerative change. Reviewed by: Dayday Quinones MD on 11/19/2023 10:27 AM PDT Approved by: Dayday Quinones MD on 11/19/2023 10:27 AM PDT Station ID: [id number]
--- NOTE | 2023-11-19 11:11 | ED Physician Documentation ---
PD HPI LOWER EXT INJURY - Stated complaint Stated Complaint: RT KNEE PX, SWELLING - Chief complaint Chief Complaint: Ext Problem - Additional information Additional information: 63-year-old female with history of hypothyroidism, diverticulitis, glaucoma, osteoarthritis presents emergency department for chronic right knee pain. 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 She has been trying to do at home exercises for her right knee pain but it feels like it has gotten so severe she needs to use a cane and on Saturday she feels like it has gotten acutely worse. 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 - Present Medications Home Medications: Ambulatory Orders Medication Instructions Recorded Confirmed Levothyroxine [Synthroid] 75 mcg PO DAILY 12/22/17 04/05/23 HYDROcod/ACETAM 5/325 [[place] 5/325] 1 - 2 tablet PO Q6H PRN #14 tablet 04/05/23 Liothyronine [Cytomel] 5 mcg PO QDAC 04/05/23 04/05/23 ONDANSETRON ODT Prepack 2 [ZOFRAN 4 mg TL Q6H PRN #10 tablet 04/05/23 ODT Prepack 2] - Allergies Allergies/Adverse Reactions: Allergies Allergy/AdvReac Type Severity Reaction Status Date / Time amoxicillin [From Augmentin] Allergy Unknown Verified 11/19/23 09:56 ciprofloxacin [From Cipro] Allergy Unknown Verified 11/19/23 09:56 clavulanic acid Allergy Unknown Verified 11/19/23 09:56 [From Augmentin] fluconazole Allergy Unknown Verified 11/19/23 09:56 Penicillins Allergy Anaphylaxis Verified 11/19/23 09:49 sulfamethoxazole Allergy Unknown Verified 11/19/23 09:56 [From Bactrim] trimethoprim [From Bactrim] Allergy Unknown Verified 11/19/23 09:56 - Social History Does the pt smoke?: No Smoking Status: Former smoker Does the pt drink ETOH?: Yes ETOH Use: Beer Does the pt have substance abuse?: Yes Substance Use and Type: Marijuana - Immunizations Immunizations are current?: No Immunizations: No immun - POLST Patient has POLST: No POLST Status: Full Code PD ED PE NORMAL - Vitals Vital signs reviewed: Yes - General General: Alert and oriented X 3, No acute distress, Well developed/nourished - Derm Derm: Normal color, Warm and dry, No rash - Extremities Extremities: No deformity, No calf tenderness / cord, Other (right knee swelling, valgus and varus tenderness, Negative anterior drawer test no joint laxityNo erythema to the skin.) Results - Vitals Vitals: Vital Signs - 24 hr 11/19/23 11/19/23 09:50 11:15 Temperature 36.5 C 36.5 C Heart Rate 77 69 Respiratory 16 16 Rate Blood Pressure 121/84 H 110/70 O2 Saturation 100 100 Oxygen O2 Source Room air - Rads (name of study) Right knee x-rays Relevant Findings:: Final report received, EMP independent interpretation of test, Other (No acute bony abnormalities or findings, degenerative changes) PD Medical Decision Making - ED course ED course: 63-year-old female presents emergency department for Chronic right knee pain. X-rays were complete for further evaluation and she does not have any acute bony abnormalities no degenerative changes. Does not appear to be septic joint and is not warm to the touch there is no erythema she only has pain when she bears any weight on it she does have some valgus varus tenderness with palpation. She does have a knee brace at home she was reluctant but was agreeable to have a Toradol shot here in the emergency department and says that normally she does not take any medications that she tries to be very organic and natural. A referral is made for the patient for her to follow-up with Ortho outpatient for further evaluation and more advanced imaging. I do not believe there is any further emergent workup indicated at this point in time return precautions given patient offered a prescription for meloxicam but she kindly declined all questions answered return precautions given patient told to follow-up primary care provider soon. Departure - Departure Disposition: Home, Self Care Clinical Impression: Arthritis of knee, right Instructions: ED Knee Pain [facility] Follow-Up: Gavin Hutton MD [Provider Admit Priv/Credential] - Comments: Thank you for trusting us with your care. We have completed x-rays of your right knee and we are not seeing any acute abnormal findings. Continue with your knee brace and the pain medication that you are using at home if this is helpful. I would recommend following up with an Ortho doctor outpatient. I have given you the contact information for our local [facility] group you have to reach out to them if you want to make an appointment if you prefer to go through your primary care provider feel free to do so. Please come back in if your knee is starting to appear red and swollen, pain is getting severely worse or you are starting to develop any fevers or chills. Forms: PCP List Discharge Date/Time: 11/19/23 12:09
[2023-11-19 11:19] VITALS: BP 110/70
[2023-11-19] MEDS: KETOROLAC 30 MG/ML VIAL IM STA (12:01)
== END 2023-11-19 12:09 | disposition home or self-care (01) ==
LOC: ED 09:40
DX: M17.11 Unilateral primary osteoarthritis, right knee (principal); Z87.891 Personal history of nicotine dependence
CPT/HCPCS: 96372; 99283; 99284

== ENCOUNTER 2023-12-03 14:50 | Outpatient (CLI) | payer OTHER ==
--- NOTE | 2023-12-03 15:47 | XRAY Report ---
PROCEDURE: Knee 4+V RT INDICATIONS: RT KNEE PAIN TECHNIQUE: 4 views of the knee(s) were acquired. COMPARISON: None. FINDINGS: Bones: No fractures or dislocations. No suspicious bony lesions. There is a mild tricompartmental osteoarthritic type degenerative change present. Soft tissues: No knee joint effusion. No suspicious soft tissue calcifications or masses. IMPRESSION: 1. No acute bony abnormality. 2. Mild tricompartmental osteoarthritic type degenerative change. Reviewed by: Luis A Reid MD on 12/03/2023 3:45 PM PDT Approved by: Luis A Reid MD on 12/03/2023 3:45 PM PDT Station ID: [id number]
== END 2023-12-03 14:51 | disposition home or self-care (01) ==
LOC: DI.S 14:50
PROVIDERS: ATTEND Physician Assistant Surgical
DX: M17.11 Unilateral primary osteoarthritis, right knee (principal)

== ENCOUNTER 2023-12-21 15:53 | Outpatient (CLI) | payer OTHER ==
--- NOTE | 2023-12-22 06:21 | XRAY Report ---
PROCEDURE: Shoulder 2+V LT INDICATIONS: LEFT SHOULDER JOINT PAIN TECHNIQUE: 2 views of the shoulder were acquired. COMPARISON: None. FINDINGS: Mild diffuse osseous demineralization. No fracture or dislocation. Amorphous calcifications overlying the greater tuberosity of the proximal humerus. Mild acromioclavicular osteoarthritis. IMPRESSION: 1.No acute fracture or dislocation of the left shoulder. 2.Calcific tendinosis overlying the greater tuberosity, in the distribution of the supraspinatus tend on. Reviewed by: Lane Blake MD on 12/22/2023 6:19 AM PDT Approved by: Lane Blake MD on 12/22/2023 6:19 AM PDT Station ID: [id number]
== END 2023-12-21 15:54 | disposition home or self-care (01) ==
LOC: DI 15:53
PROVIDERS: ATTEND Emergency Medicine
DX: M19.012 Primary osteoarthritis, left shoulder (principal); M25.812 Other specified joint disorders, left shoulder

== ENCOUNTER 2024-01-01 09:34 | Outpatient (CLI) | payer OTHER ==
[2024-01-01 14:46] LABS: BASOPHILS # (AUTO) 0.1 10^3/uL (0.0-0.1); BASOPHILS % (AUTO) 0.5 %; EOSINOPHILS # (AUTO) 0.2 10^3/uL (0.0-0.7); EOSINOPHILS % (AUTO) 2.1 %; HGB - HEMOGLOBIN 13.1 g/dL (12.0-16.0); LYMPHOCYTES # (AUTO) 2.8 10^3/uL (1.5-3.5); LYMPHOCYTES % (AUTO) 27.8 %; MEAN CORPUSCULAR HEMOGLOBIN 29.8 pg (27.0-31.0); MEAN CORPUSCULAR VOLUME 93.4 fL (81.0-99.0); MEAN PLATELET VOLUME 11.7 fL (7.9-10.8); MONOCYTES # (AUTO) 0.9 10^3/uL (0.0-1.0); MONOCYTES % (AUTO) 8.8 %; NEUTROPHILS % (AUTO) 60.3 %; PLT - PLATELET COUNT 252 10^3/uL (130-450); RED BLOOD COUNT 4.39 10^6/uL (4.20-5.40); RED CELL DISTRIBUTION WIDTH 12.6 % (12.0-15.0); WHITE BLOOD COUNT 9.9 x10^3/uL (4.8-10.8)
[2024-01-01 15:26] LABS: ALBUMIN 4.4 g/dL (3.2-5.5); ALKALINE PHOSPHATASE 56 IU/L (42-121); ALT ALANINE AMINOTRANSFERASE 17 IU/L (10-60); AST ASPARTATE AMINOTRANSFERASE 14 IU/L (10-42); BILIRUBIN,TOTAL 0.4 mg/dL (0.2-1.0); BUN - BLOOD UREA NITROGEN 14 mg/dL (6-20); CALCIUM 9.9 mg/dL (8.5-10.3); CARBON DIOXIDE - CO2 27 mmol/L (21-32); CHLORIDE 104 mmol/L (101-111); CHOL/HDL RATIO 2.7 (<4.4); CHOLESTEROL 244 mg/dL; CREATININE 0.7 mg/dL (0.6-1.3); GFR - MDRD 84 (>89); GLUCOSE 94 mg/dL (74-104); HDL CHOLESTEROL 90 mg/dL; LDL CHOLESTEROL,CALCULATED 101 mg/dL; LDL/HDL RATIO 1.1 (<4.4); POTASSIUM 3.9 mmol/L (3.5-4.5); SODIUM 138 mmol/L (135-145); TOTAL PROTEIN 6.6 g/dL (6.4-8.9); TRIGLYCERIDES 266 mg/dL; VLDL CHOLESTEROL 53 mg/dL
[2024-01-01 15:36] LABS: THYROID STIMULATING HORMONE 2.22 uIU/mL (0.34-5.60)
== END 2024-01-01 09:35 | disposition home or self-care (01) ==
LOC: LAB.S 09:34
PROVIDERS: ATTEND Internal Medicine
DX: E78.5 Hyperlipidemia, unspecified (principal); E03.9 Hypothyroidism, unspecified
CPT/HCPCS: 36415; 80053; 80061; 83721; 84443; 85025